=== PATIENT | female | born 1980 | race Caucasian/White ===

== ENCOUNTER 2016-10-02 23:00 | Emergency (ER) | payer OTHER ==
--- NOTE | 2016-10-03 02:05 | ED CLINICAL REPORT ---
Clinical Report - Physicians/Mid Levels Located Within [facility] [address] [place] [address] 10/02/2016 23:01 Patient: JL YEUNG Time Seen: 23:33. Arrived- By private vehicle. Historian- patient. HISTORY OF PRESENT ILLNESS Chief Complaint: BOIL and TENDER AREA. This started several days ago; Pt has a painful draining lesion at the R inguinal crease. and is still present. It was gradual in onset. It is described as painful. It has been located on the right lower extremity (vulva). No cause has been identified. Similar symptoms previously: Several times. REVIEW OF SYSTEMS No fever, difficulty breathing or abdominal pain. PAST HISTORY PROBLEMS: Abscess. Diabetes Mellitus. --23:16 Anjum Degroot RSigifredoNSigifredo Cholelithiasis. SOCIAL HISTORY Current every day smoker. ADDITIONAL NOTES The nursing notes have been reviewed. PHYSICAL EXAM Vital Signs: 10/03/2016 02:08 BP: 113/68. HR: 98. RR: 15. O2 saturation: 100%. Temp: 98.4 F. Pain level now: 2/10. 10/02/2016 23:07 BP: 122/80. HR: 105. RR: 16. O2 saturation: 98%. Temp: 98.1 F. Pain level now: 8/10. Respiratory: No respiratory distress. Breath sounds normal. Abdomen: Nontender. Skin: Single medium abscess with drainage (R side of vulva adjacent to inguinal crease.). PROGRESS AND PROCEDURES Incision & Drainage of Abscess: The abscess is located (R side of vulva adjacent to inguinal crease.). Local anesthesia provided using 0.50% Marcaine with epi. Skin cleansed with Betadine. The abscess was incised with a #11 surgical blade. No pus drained. Cavity was irrigated with saline and packed with gauze. Estimated blood loss: 0.1 mL. ( The cavity had drained spontaneously. It was opened, explored, irrigated and packed with Nugauze.). Disposition: Discharged. Condition: stable. CLINICAL IMPRESSION Single superficial abscess to the genitalia. INSTRUCTIONS (YOU WILL NEED TO HAVE YOUR PACK CHANGED 2 DAYS FROM NOW. SITS BATHS FOR 15-20 MINUTES TWICE A DAY.). Prescription Medications: Hydrocodone/APAP take 1-2 orally every 4 hours as needed for pain. Dispense fifteen (15). No refill. Bactrim DS 800 mg / 160 mg: Take 1 tablet orally every 12 hours for 7 days. Dispense fourteen (14). No refills. Substitution is permissible. Follow-up: Follow up with your doctor Thursday in four days. Understanding of the discharge instructions verbalized by patient. (Electronically signed by Judah Gagnon MD 10/06/2016 14:34) Addenda for JOSEP PALACIOS JL A VisitID: [id number] Date: 10/02/2016 10/03/2016 11:04 Pharmacy called and needs the strength of the percocet - I will write for 5/325mg tabs (Electronically signed by Cem Lawrence DO - 10/03/2016 11:04)
--- NOTE | 2016-10-03 02:05 | ED CLINICAL REPORT ---
Clinical Report - Physicians/Mid Levels [facility] [address] [place] [address] 10/02/2016 23:01 Patient: JL YEUNG Time Seen: 23:33. Arrived- By private vehicle. Historian- patient. HISTORY OF PRESENT ILLNESS Chief Complaint: BOIL and TENDER AREA. This started several days ago; Pt has a painful draining lesion at the R inguinal crease. and is still present. It was gradual in onset. It is described as painful. It has been located on the right lower extremity (vulva). No cause has been identified. Similar symptoms previously: Several times. REVIEW OF SYSTEMS No fever, difficulty breathing or abdominal pain. PAST HISTORY PROBLEMS: Abscess. Diabetes Mellitus. --23:16 Anjum Degroot RSigifreodNSigifredo Cholelithiasis. SOCIAL HISTORY Current every day smoker. ADDITIONAL NOTES The nursing notes have been reviewed. PHYSICAL EXAM Vital Signs: 10/03/2016 02:08 BP: 113/68. HR: 98. RR: 15. O2 saturation: 100%. Temp: 98.4 F. Pain level now: 2/10. 10/02/2016 23:07 BP: 122/80. HR: 105. RR: 16. O2 saturation: 98%. Temp: 98.1 F. Pain level now: 8/10. Respiratory: No respiratory distress. Breath sounds normal. Abdomen: Nontender. Skin: Single medium abscess with drainage (R side of vulva adjacent to inguinal crease.). PROGRESS AND PROCEDURES Incision & Drainage of Abscess: The abscess is located (R side of vulva adjacent to inguinal crease.). Local anesthesia provided using 0.50% Marcaine with epi. Skin cleansed with Betadine. The abscess was incised with a #11 surgical blade. No pus drained. Cavity was irrigated with saline and packed with gauze. Estimated blood loss: 0.1 mL. ( The cavity had drained spontaneously. It was opened, explored, irrigated and packed with Nugauze.). Disposition: Discharged. Condition: stable. CLINICAL IMPRESSION Single superficial abscess to the genitalia. INSTRUCTIONS (YOU WILL NEED TO HAVE YOUR PACK CHANGED 2 DAYS FROM NOW. SITS BATHS FOR 15-20 MINUTES TWICE A DAY.). Prescription Medications: Hydrocodone/APAP take 1-2 orally every 4 hours as needed for pain. Dispense fifteen (15). No refill. Bactrim DS 800 mg / 160 mg: Take 1 tablet orally every 12 hours for 7 days. Dispense fourteen (14). No refills. Substitution is permissible. Follow-up: Follow up with your doctor Thursday in four days. Understanding of the discharge instructions verbalized by patient. (Electronically signed by Judah Gagnon MD 10/06/2016 14:34) Addenda for JOSEP PALACIOS JL A VisitID: [id number] Date: 10/02/2016 10/03/2016 11:04 Pharmacy called and needs the strength of the percocet - I will write for 5/325mg tabs (Electronically signed by Cem Lawrence DO - 10/03/2016 11:04)
--- NOTE | 2016-10-03 02:05 | ED NURSING NOTES ---
Clinical Report - Nurses [facility] [place] [address] 10/02/2016 23:01 [id number] Triage time 23:08. Acuity: LEVEL 4. Chief Complaint: (abscess on right nila). --23:19 Anjum Degroot R.N. 23:07 10/02/16. BP: 122/80. HR: 105. RR: 16. O2 saturation: 98%. Temp: 98.1 F. Pain level now: 12/04. --23:19 Anjum Degroot R.N. Weight: 118.8 kg stated. Height/Length: 65 inches Per Patient. BMI: 43.6. --23:17 Anjum Degroot R.N. Medications Metformin. --23:15 Anjum Degroot R.N. MetFORMIN HCl Oral. --23:15 Anjum Degroot R.N. Medication/allergy information source: the patient. --23:19 Anjum Degroot R.N. Allergies No Known Drug Allergy. --23:15 Anjum Degroot R.N. History Arrived by private vehicle. Historian: patient. ( Abscess on right groin x 3 days, increasing in size since. Pain is getting worse when walking or when she applies pressure on it. Purulent discharge since she changed the dressing today. Seen at [facility] for the same problem 3 months ago. No fever.). This is a recurrent problem. (3 days ago). Treatment FACILITIES MAINTENANCE WORKER: Seen within the last 30 days at another facility; treatment- pain medication. SURGERY HX: Cholecystectomy. SOCIAL HX: Light tobacco smoker (cigarette). Occasional alcohol use. History of drug use: marijuana. Recently used drugs yesterday. No infectious disease exposure. --23:19 Anjum Degroot R.N. PROBLEMS: Abscess. Diabetes Mellitus. --23:16 Anjum Degroot R.N. Cholelithiasis. --23:17 Anjum Degroot R.N. Interventions ID band on patient. To room. --23:19 Anjum Degroot R.N. PHYSICAL ASSESSMENT Ambulatory to room. GENERAL / NEURO / PSYCH: Alert. Oriented X 4. Appears in no acute distress. Appears in pain. HEENT: Mucous membranes are pink. RESPIRATORY: Respirations not labored. Breath sounds within normal limits. CVS: Normal heart rate and rhythm. Capillary refill less than 2 seconds. GI / : Abdomen soft and nontender. Bowel sounds within normal limits. No vaginal bleeding. No vaginal discharge. ( deferred assessment of abscess on right groin to physician). SKIN: Skin is warm and dry. --23:20 Anjum Degroot R.N. NURSING PROGRESS NOTES Patient gowned. Reassurance given. Patient identifiers checked. Call light placed in reach. Side rails up x 1. Bed placed in lowest position. Brakes of bed on. Patient ready for evaluation- ED physician and FISCAL CLERK notified. --23:21 Anjum Degroot R.N. Point of care testing: performed by nurse. Glucose: 333. Orders were not received. ( POC glucometer done as patient states she feels that her glucose is high.). --00:04 Anjum Degroot R.N. 00:50 10/03/16. I & D: Incision and Drainage of abscess performed by ED physician. Assisted by one nurse. The abscess is located on the labia. Preparation: Incision and Drainage tray set up with lidocaine. Procedure: skin cleansed with Betadine; a small amount of pus was drained. Cavity was irrigated with saline and packed with gauze. Sample obtained for cultures. Post-procedure: she was stable, no complications and bleeding controlled. Total time of assist / procedure: 15 minutes. --01:11 Anna Lopez Reassessment after procedure (I&D). Overall patient status is improved- she states feels better. --02:04 Anjum Degroot R.N. DISPOSITION / DISCHARGE No learning barriers present. Discharge instructions provided and reviewed with the patient. Reviewed medication(s) side effects, precautions, dosing and course information. Prescription(s) given to the patient. Reviewed referral to a primary care physician for followup. Patient verbalized understanding. Written instructions provided in [place]ian. The patient was discharged home and accompanied by video games mechanic. She left the Emergency Department ambulatory and via private vehicle. Cut Off Worker driving. --02:13 Anjum Degroot R.N. 02:08 10/03/16. BP: 113/68. HR: 98. RR: 15. O2 saturation: 100%. Temp: 98.4 F (oral). Pain level now: 06/06. --02:13 Anjum Degroot R.N. Departure time: 02:13. --02:13 Anjum Degroot R.N. Locked/Released at 10/03/2016 2:13 by Anjum Degroot R.N.
--- NOTE | 2016-10-03 02:05 | ED NURSING NOTES ---
Clinical Report - Nurses [facility] [place] [address] 10/02/2016 23:01 [id number] Triage time 23:08. Acuity: LEVEL 4. Chief Complaint: (abscess on right nila). --23:19 Anjum Degroot R.N. 23:07 10/02/16. BP: 122/80. HR: 105. RR: 16. O2 saturation: 98%. Temp: 98.1 F. Pain level now: 12/04. --23:19 Anjum Degroot R.N. Weight: 118.8 kg stated. Height/Length: 65 inches Per Patient. BMI: 43.6. --23:17 Anjum Degroot R.N. Medications Metformin. --23:15 Anjum Degroot R.N. MetFORMIN HCl Oral. --23:15 Anjum Degroot R.N. Medication/allergy information source: the patient. --23:19 Anjum Degroot R.N. Allergies No Known Drug Allergy. --23:15 Anjum Degroot R.N. History Arrived by private vehicle. Historian: patient. ( Abscess on right groin x 3 days, increasing in size since. Pain is getting worse when walking or when she applies pressure on it. Purulent discharge since she changed the dressing today. Seen at [facility] for the same problem 3 months ago. No fever.). This is a recurrent problem. (3 days ago). 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 SURGERY HX: Cholecystectomy. SOCIAL HX: Light tobacco smoker (cigarette). Occasional alcohol use. History of drug use: marijuana. Recently used drugs yesterday. No infectious disease exposure. --23:19 Anjum Degroot R.N. PROBLEMS: Abscess. Diabetes Mellitus. --23:16 Anjum Degroot R.N. Cholelithiasis. --23:17 Anjum Degroot R.N. Interventions ID band on patient. To room. --23:19 Anjum Degroot R.N. PHYSICAL ASSESSMENT Ambulatory to room. GENERAL / NEURO / PSYCH: Alert. Oriented X 4. Appears in no acute distress. Appears in pain. HEENT: Mucous membranes are pink. RESPIRATORY: Respirations not labored. Breath sounds within normal limits. CVS: Normal heart rate and rhythm. Capillary refill less than 2 seconds. GI / : Abdomen soft and nontender. Bowel sounds within normal limits. No vaginal bleeding. No vaginal discharge. ( deferred assessment of abscess on right groin to physician). SKIN: Skin is warm and dry. --23:20 Anjum Degroot R.N. NURSING PROGRESS NOTES Patient gowned. Reassurance given. Patient identifiers checked. Call light placed in reach. Side rails up x 1. Bed placed in lowest position. Brakes of bed on. Patient ready for evaluation- ED physician and RELAY ASSEMBLER notified. --23:21 Anjum Degroot R.N. Point of care testing: performed by nurse. Glucose: 333. Orders were not received. ( POC glucometer done as patient states she feels that her glucose is high.). --00:04 Anjum Degroot R.N. 00:50 10/03/16. I & D: Incision and Drainage of abscess performed by ED physician. Assisted by one nurse. The abscess is located on the labia. Preparation: Incision and Drainage tray set up with lidocaine. Procedure: skin cleansed with Betadine; a small amount of pus was drained. Cavity was irrigated with saline and packed with gauze. Sample obtained for cultures. Post-procedure: she was stable, no complications and bleeding controlled. Total time of assist / procedure: 15 minutes. --01:11 Anna Lopez Reassessment after procedure (I&D). Overall patient status is improved- she states feels better. --02:04 Anjum Degroot R.N. DISPOSITION / DISCHARGE No learning barriers present. Discharge instructions provided and reviewed with the patient. Reviewed medication(s) side effects, precautions, dosing and course information. Prescription(s) given to the patient. Reviewed referral to a primary care physician for followup. Patient verbalized understanding. Written instructions provided in [place] Islander. The patient was discharged home and accompanied by equipment installer. She left the Emergency Department ambulatory and via private vehicle. Software Engineer Kernel driving. --02:13 Anjum Degroot R.N. 02:08 10/03/16. BP: 113/68. HR: 98. RR: 15. O2 saturation: 100%. Temp: 98.4 F (oral). Pain level now: 06/06. --02:13 Anjum Degroot R.N. Departure time: 02:13. --02:13 Anjum Degroot R.N. Locked/Released at 10/03/2016 2:13 by Anjum Degroot R.N.
--- NOTE | 2016-10-06 14:35 | ED MED RECONCILIATION SUMMARY ---
Patient: JL YEUNG Medication Reconciliation Report [facility] VisitID: [id number] [place] [address] 36y, F Registration Date/Time: 10/02/2016 Weight: 118.8 kg Height/Length: 65 in. BMI: 43.6 ALLERGIES: No Known Drug Allergy The patient's Home Medications are listed below: THE FOLLOWING MEDICATIONS NEED TO BE RECONCILED: Metformin MetFORMIN HCl Oral The source(s) of the original Home Medication information: patient The following Medications were given to the patient in the Emergency Department: None. The following Medications were prescribed to the patient: Hydrocodone/APAP take 1-2 orally every 4 hours as needed for pain. Dispense fifteen (15). No refill. -- Judah Gagnon MD Bactrim DS 800 mg / 160 mg: Take 1 tablet orally every 12 hours for 7 days. Dispense fourteen (14). No refills. Substitution is permissible. -- Judah Gagnon MD
--- NOTE | 2016-10-06 14:35 | ED MED RECONCILIATION SUMMARY ---
Patient: JL YEUNG Medication Reconciliation Report [facility] VisitID: [id number] [place] [address] 36y, F Registration Date/Time: 10/02/2016 Weight: 118.8 kg Height/Length: 65 in. BMI: 43.6 ALLERGIES: No Known Drug Allergy The patient's Home Medications are listed below: THE FOLLOWING MEDICATIONS NEED TO BE RECONCILED: Metformin MetFORMIN HCl Oral The source(s) of the original Home Medication information: patient The following Medications were given to the patient in the Emergency Department: None. The following Medications were prescribed to the patient: Hydrocodone/APAP take 1-2 orally every 4 hours as needed for pain. Dispense fifteen (15). No refill. -- Judah Gagnon MD Bactrim DS 800 mg / 160 mg: Take 1 tablet orally every 12 hours for 7 days. Dispense fourteen (14). No refills. Substitution is permissible. -- Judah Gagnon MD
--- NOTE | 2016-10-06 14:35 | ED DISCHARGE INSTRUCTIONS ---
Patient: JL YEUNG General Instructions [facility] VisitID: [id number] [place] [address] 36y, F Registration Date/Time: 10/02/2016 Single superficial abscess to the genitalia. INSTRUCTIONS (YOU WILL NEED TO HAVE YOUR PACK CHANGED 2 DAYS FROM NOW. SITS BATHS FOR 15-20 MINUTES TWICE A DAY.). Prescription Medications: Hydrocodone/APAP take 1-2 orally every 4 hours as needed for pain. Dispense fifteen (15). No refill. Bactrim DS 800 mg / 160 mg: Take 1 tablet orally every 12 hours for 7 days. Dispense fourteen (14). No refills. Substitution is permissible. Follow-up: Follow up with your doctor Thursday in four days. Understanding of the discharge instructions verbalized by patient. ADDITIONAL INFORMATION Abscess [Incision & Drainage] An abscess (sometimes called a boil) occurs when bacteria get trapped under the skin and begin to grow. Pus forms inside the abscess as the body responds to the bacteria. An abscess can occur with an insect bite, ingrown hair, blocked oil gland, pimple, cyst, or puncture wound. Treatment of your abscess has required an incision to drain the pus. If the abscess pocket was large, a gauze packing may have been inserted. This will need to be removed and possibly replaced on your next visit. Antibiotics are not required in the treatment of a simple abscess, unless the infection is spreading into the skin around the wound (known as cellulitis). Healing of the wound will take about one to two weeks depending on the size of the abscess. Healthy tissue will grow from the bottom and sides of the opening until it seals over. Home Care: The wound may drain for the first two days. Cover the wound with a clean dry dressing. If the dressing becomes soaked with blood or pus, change it. If a gauze packing was placed inside the abscess cavity, you may be advised to remove it yourself. You may do this in the shower. Once the packing is removed, you should wash the area in the shower or bath 3 to 4 times a day, until the skin opening has closed. If you were prescribed antibiotics, take them as directed until they are all gone. You may use acetaminophen (Tylenol) or ibuprofen (Motrin, Advil) to control pain, unless another pain medicine was prescribed. [ NOTE: If you have liver disease or ever had a stomach ulcer, talk with your doctor before using these medicines.] Follow Up with your doctor as advised by our staff. If a gauze packing was inserted in your wound, it should be removed in 1-2 days. Check your wound every day for the signs of worsening infection listed below. Get Prompt Medical Attention if any of the following occur: Increasing redness or swelling Red streaks in the skin leading away from the wound Increasing local pain or swelling Continued pus draining from the wound two days after treatment Fever of 100.4F (38C) or higher, or as directed by your healthcare provider Hydrocodone Bitartrate, Acetaminophen Oral tablet What is this medicine? ACETAMINOPHEN; HYDROCODONE (a set a DEBBIE shakila fen; john droe KOE done) is a pain reliever. It is used to treat mild to moderate pain. How should I use this medicine? Take this medicine by mouth. Swallow it with a full glass of water. Follow the directions on the prescription label. If the medicine upsets your stomach, take the medicine with food or milk. Do not take more than you are told to take. Talk to your outside sales consultant regarding the use of this medicine in children. This medicine is not approved for use in children. What side effects may I notice from receiving this medicine? Side effects that you should report to your doctor or health patient care manager as soon as possible: allergic reactions like skin rash, itching or hives, swelling of the face, lips, or tongue breathing problems confusion feeling faint or lightheaded, falls stomach pain yellowing of the eyes or skin Side effects that usually do not require medical attention (report to your doctor or health patient care manager if they continue or are bothersome): nausea, vomiting stomach upset What may interact with this medicine? alcohol antihistamines isoniazid medicines for depression, anxiety, or psychotic disturbances medicines for sleep muscle relaxants naltrexone narcotic medicines (opiates) for pain phenobarbital ritonavir tramadol What if I miss a dose? If you miss a dose, take it as soon as you can. If it is almost time for your next dose, take only that dose. Do not take double or extra doses. Where should I keep my medicine? Keep out of the reach of children. This medicine can be abused. Keep your medicine in a safe place to protect it from theft. Do not share this medicine with anyone. Selling or giving away this medicine is dangerous and against the law. Store at room temperature between 15 and 30 degrees C (59 and 86 degrees F). Protect from light. Keep container tightly closed. Throw away any unused medicine after the expiration date. Discard unused medicine and used packaging carefully. Pets and children can be harmed if they find used or lost packages. What should I tell my health care provider before I take this medicine? They need to know if you have any of these conditions: brain tumor Crohn's disease, inflammatory bowel disease, or ulcerative colitis drink more than 3 alcohol-containing drinks per day drug abuse or addiction head injury heart or circulation problems kidney disease or problems going to the bathroom liver disease lung disease, asthma, or breathing problems an unusual or allergic reaction to acetaminophen, hydrocodone, other opioid analgesics, other medicines, foods, dyes, or preservatives or trying to get breast-feeding What should I watch for while using this medicine? Tell your doctor or health patient care manager if your pain does not go away, if it gets worse, or if you have new or a different type of pain. You may develop tolerance to the medicine. Tolerance means that you will need a higher dose of the medicine for pain relief. Tolerance is normal and is expected if you take the medicine for a long time. Do not suddenly stop taking your medicine because you may develop a severe reaction. Your body becomes used to the medicine. This does NOT mean you are addicted. Addiction is a behavior related to getting and using a drug for a non-medical reason. If you have pain, you have a medical reason to take pain medicine. Your doctor will tell you how much medicine to take. If your doctor wants you to stop the medicine, the dose will be slowly lowered over time to avoid any side effects. You may get drowsy or dizzy when you first start taking the medicine or change doses. Do not drive, use machinery, or do anything that may be dangerous until you know how the medicine affects you. Stand or sit up slowly. There are different types of narcotic medicines (opiates) for pain. If you take more than one type at the same time, you may have more side effects. Give your health care provider a list of all medicines you use. Your doctor will tell you how much medicine to take. Do not take more medicine than directed. Call emergency for help if you have problems breathing. The medicine will cause constipation. Try to have a bowel movement at least every 2 to 3 days. If you do not have a bowel movement for 3 days, call your doctor or health patient care manager. Too much acetaminophen can be very dangerous. Do not take Tylenol (acetaminophen) or medicines that contain acetaminophen with this medicine. Many non-prescription medicines contain acetaminophen. Always read the labels carefully. You have been given the following additional information: Abscess, Incision And Drainage Hydrocodone Bitartrate, Acetaminophen Oral tablet (Electronically signed by Judah Gagnon MD 10/06/2016 14:34)
--- NOTE | 2016-10-06 14:35 | ED MAR SUMMARY ---
..... Medication Administration Record [facility] [address], [place] [id number] Patient: JOSEP MARTINTIZJL Visit ID: [id number] 36y, F Weight: 118.8 kg Height/Length: 65 in BMI: 43.6 ALLERGIES: No Known Drug Allergy
--- NOTE | 2016-10-06 14:35 | ED MAR SUMMARY ---
..... Medication Administration Record [facility] [address], [place] [id number] Patient: JOSEP MARTINTIZJL Visit ID: [id number] 36y, F Weight: 118.8 kg Height/Length: 65 in BMI: 43.6 ALLERGIES: No Known Drug Allergy
== END 2016-10-03 02:10 | disposition home or self-care (01) ==
LOC: ED SRH 23:00
DX: N76.4 Abscess of vulva (principal); E11.9 Type 2 diabetes mellitus without complications; F17.200 Nicotine dependence, unspecified, uncomplicated
CPT/HCPCS: 90098